=== PATIENT | male | born 1935 | race Caucasian/White ===

== ENCOUNTER 2016-09-10 13:48 | Emergency (ER) | payer OTHER, MEDICARE ==
[~2016-09-10] VITALS: Ht 182.9 cm; Wt 100.2 kg
--- NOTE | 2016-09-10 14:20 | ED GI/GU/ABDOMINAL COMPLAINT ---
History of Present Illness General Chief Complaint: Nausea, Vomiting, Diarrhea Stated Complaint: N/V Source: patient, family Exam Limitations: no limitations Vital Signs & Intake/Output Vital Signs & Intake/Output Vital Signs Date Time Temp Pulse Resp B/P B/P Pulse O2 O2 Flow FiO2 Mean Ox Delivery Rate 09/10 1826 97.0 66 17 152/68 100 Room Air 09/10 1352 97.7 62 20 160/73 96 ED Intake and Output 09/11 0000 09/10 1200 Intake Total 1700 Output Total Balance 1700 Intake, IV 1700 Patient 221 lb Weight Weight Reported by Patient Measurement Method Allergies Coded Allergies: Penicillins (UNKNOWN 09/10/16) Reconcile Medications Fluticasone Propionate 50 MCG/ACTUATION SPRAY.SUSP 2 SPRAY NASB DAILY ALLERGIES (Reported) Ondansetron HCl (Zofran) 4 MG TABLET 1 TAB PO Q6-8P PRN NAUSEA Triage Note: PT TO ED C/O N/V SINCE YESTERDAY. DENIES DIARRHEA. ALSO C/O "PAIN IN SINUSES" SINCE YESTERDAY. Triage Nurses Notes Reviewed? yes Onset: Abrupt Duration: constant Timing: recent history Quality/Severity: aching Severity Numbers: 1 Location: generalized abdomen Radiation: no radiation Activities at Onset: none HPI: Patient is a 80-year-old male with a past medical history of congenital SOLITARY KIDNEY, prostate cancer S/P CYSTECTOMY/prostatectomy in remission with a indwelling colostomy bag placed remotely by Dr. ECHEVERRIA in which patient's last colonoscopy was October [address] ECHEVERRIA showing polyps were patient states that yesterday he had acute onset of nausea and vomiting and this had multiple episodes of nonbloody nonbilious emesis and has been unable to tolerate anything by mouth. Patient denies any recent antibiotics. Denies any NSAID use. Denies any fever chills chest pain shortness of breath cough back pain arm pain jaw pain diaphoresis palpitations. Colostomy bag noted to have no concerns of bright red blood or melena. No change in bowel habits. Complains of minimal generalized abdominal discomfort due to emesis episodes. Patient does admit to a chronic history of left lateral nasal and sinus pressure where he states that he has been evaluated by an ENT doctor remotely where he has been taking nasal spray and antihistamines with relief of symptoms. Patient does admit that due to his symptoms as stated above his nasal pressure and sinus pressure has BEEN worse. (RAFFI LAW) Past History Travel History Traveled to [place] past 21 day No Medical History Any Pertinent Medical History? see below for history Cardiovascular: slow heart Cancer(s): prostate cancer Surgical History Surgical History: prostatectomy, COLOSTOMY Psychosocial History What is your primary language Swedish Tobacco Use: Quit >30 days ago ETOH Use: denies use Illicit Drug Use: denies illicit drug use Family History Hx Contributory? No (RAFFI LAW) Review of Systems Review of Systems Constitutional: Reports: no symptoms. EENTM: Reports: no symptoms. Respiratory: Reports: no symptoms. Cardiovascular: Reports: no symptoms. GI: Reports: see HPI, nausea. Genitourinary: Reports: no symptoms. Musculoskeletal: Reports: no symptoms. Skin: Reports: no symptoms. Neurological/Psychological: Reports: no symptoms. Hematologic/Endocrine: Reports: no symptoms. Immunologic/Allergic: Reports: no symptoms. All Other Systems: Reviewed and Negative (RAFFI LAW) Physical Exam Physical Exam General Appearance: no apparent distress, alert, comfortable Gastrointestinal: normal bowel sounds, soft, NO ABDOMINAL TENDERNESS Comments: Well-developed well-nourished person in no acute distress HEENT: Normal EENT exam, extraocular motion intact, no nystagmus. Pupils equally round and reactive to light and accommodation. Nose is atraumatic. External auditory canal and Tympanic membranes clear. Pharynx normal. No swelling or edema. Left sinus mild point tenderness noted Neck: Supple, no lymphadenopathy, normal range of motion without pain or tenderness Back: Nontender, no CVA tenderness. Cardiovascular: Regular rate and rhythms no murmurs rubs or gallops, normal JVP Respiratory: Chest nontender. No respiratory distress.breath sounds clear to auscultation bilaterally Abdomen: Soft, nontender nondistended, no appreciable organomegaly. Normal bowel sounds. No ascites Colostomy bag indwelling noted yellow/green stool Extremity: No edema, no calf tenderness to palpation, normal and equal pulses. Neuro: Alert oriented x3, motor sensory normal Skin: No appreciable rash on exposed skin, skin is warm and dry. Psych: Mood and affect is normal, memory and judgment is normal. Core Measures ACS in differential dx? No Severe Sepsis Present: No Septic Shock Present: No (RAFFI LAW) Progress Differential Diagnosis: AAA, AMI, appendicitis, biliary colic, bowel obstruction , colon cancer, cholecystitis, diverticulitis, epididymitis, esophageal varices, gastritis, hepatitis, hernia, hemorrhoids, ischemic bowel, inflamm bowel dis, Natalia-Libby tear, orchitis, pancreatitis, prostatitis, peptic ulcer, PUD/GERD, perforated viscous, pyelonephritis, SBO, ureterolithiasis, urethritis, UTI/pyelo Plan of Care: Orders Procedure Date/time Status Add-on Test (ER Only) 09/10 174 Active EKG 09/10 174 Active TROPONIN LEVEL 09/10 1516 Complete LIPASE 09/10 1430 Complete LACTIC ACID 09/10 1430 Complete COMPREHENSIVE METABOLIC PANEL 09/10 143 Complete CBC WITHOUT DIFFERENTIAL 09/10 143 Complete AMYLASE 09/10 143 Complete Laboratory Tests 09/10/16 1730: Lactic Acid Cancelled 09/10/16 1516: Anion Gap 13, Estimated GFR 32 L, BUN/Creatinine Ratio 12.5, Glucose 110 H, Lactic Acid 1.3, Calcium 9.5, Total Bilirubin 0.7, AST 19, ALT 38, Alkaline Phosphatase 58, Troponin I 0.02, Total Protein 7.4, Albumin 4.5, Globulin 2.9, Albumin/Globulin Ratio 1.6, Amylase 60, Lipase 148, CBC w Diff NO MAN DIFF REQ, RBC 5.87, MCV 85.2, MCH 28.0, RDW 13.8, MPV 8.1, Gran % 88.0 H, Lymphocytes % 9.4 L, Monocytes % 2.6, Eosinophils % 0, Basophils % 0 L, Absolute Granulocytes 8.1 H, Absolute Lymphocytes 0.9 L, Absolute Monocytes 0.2, Absolute Eosinophils 0, Absolute Basophils 0, PUBS MCHC 32.9 L Patient currently is resting comfortably at bedside has nontender abdomen however patient will be obtaining blood work and CT scan patient is afebrile. 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 On discharge patient looks well no apparent distress and will comply with discharge instructions and had no questions. Discussed disposition plan with who agrees (RAFFI LAW) Diagnostic Imaging: Viewed by Me: CT Scan. Radiology Impression: no acute abnormality Initial ED EK BPM, 1ST DEGREE AV BLOCK Prior EKG: unchanged (RAFFI LAW) Departure Departure Disposition: HOME OR SELF CARE Condition: Stable Clinical Impression Primary Impression: Nausea & vomiting Secondary Impressions: Chronic sinusitis Referrals: JACKI APARICIO,JOSE LICEA MD,JEANNIE Chavarria (PCP/Family) Additional Instructions: As discussed begin a 24-hour clear liquids and bland diet to rest her bowels. Begin the prescription of Zofran if needed for future nausea. Continue home medications as directed. If symptoms worsen return to emergency room. Follow- up tomorrow if your symptoms still continue with business reporter Dr. Rodriguez Departure Forms: Customer Survey General Discharge Information Prescriptions: Current Visit Scripts Ondansetron HCl (Zofran) 1 TAB PO Q6-8P PRN NAUSEA #15 TAB (RAFFI LAW) PA/PHONE COUNSELOR Co-Sign Statement Statement: ED Attending supervision documentation- [X] I saw and evaluated the patient. I have also reviewed all the pertinent lab results and diagnostic results. I agree with the findings and the plan of care as documented in the PA's/PHONE COUNSELOR's documentation. [X] I have reviewed the ED Record and agree with the PA's/PHONE COUNSELOR's documentation. [] Additions or exceptions (if any) to the PAs/PHONE COUNSELOR's note and plan are summarized below: [] (MAYRA APARICIO,VIJI)
[2016-09-10] MEDS ORDERED: FLUTICASONE PRO16 GM NASB (14:31)
[2016-09-10 15:29] LABS: ABSOLUTE BASOPHIL COUNT 0 /CUMM (0.0-0.2); ABSOLUTE EOSINOPHIL COUNT 0 /CUMM (0.0-0.7); ABSOLUTE GRANULOCYTE CT 8.1 /CUMM (1.4-6.5); ABSOLUTE LYMPH COUNT 0.9 /CUMM (1.2-3.4); ABSOLUTE MONOCYTE COUNT 0.2 /CUMM (0.10-0.60); BASOPHIL % 0 % (0.0-2.0); EOSINOPHIL % 0 % (0-5); MEAN CORPUSCULAR HGB CONC 32.9 G/DL (33.0-37.0); MEAN CORPUSCULAR VOLUME 85.2 FL (80.0-94.0); MEAN PLATELET VOLUME 8.1 FL (7.4-10.4); PLATELET COUNT 162 /CUMM (130-400); RBC DISTRIBUTION WIDTH 13.8 % (11.5-14.5); RED BLOOD CELL CT 5.87 /CUMM (4.70-6.10); WHITE BLOOD CELL COUNT 9.2 /CUMM (4.8-10.8)
--- NOTE | 2016-09-10 17:34 | CT SCAN REPORT ---
EXAMINATION: CT ABDOMEN AND PELVIS WITHOUT CONTRAST CLINICAL INFORMATION: Nausea and vomiting. Status post cystectomy. Status post left nephrectomy. Status post prostatectomy. COMPARISON: CAT scan of 04/25/2005 not available for review TECHNIQUE: Multidetector volumetric imaging was performed from the superior aspect of the liver through the pubic symphysis. Sagittal and coronal reformatted images were obtained on the technologist's workstation. No oral or intravenous contrast DLP: 615.24 mGy-cm FINDINGS: LUNG BASES: The visualized lung bases are unremarkable. LIVER, GALLBLADDER, AND BILIARY TREE: The liver is normal in size, shape, and attenuation. No focal hepatic lesion or biliary ductal dilatation is present. The gallbladder is unremarkable with no evidence of radiopaque gallstones, gallbladder wall thickening, or obvious pericholecystic inflammatory changes. PANCREAS: Unremarkable. SPLEEN: Unremarkable. ADRENAL GLANDS: Unremarkable. KIDNEYS AND URETERS: Status post left nephrectomy. No recurrent tumor in renal bed. The right kidney has dilatation of the calyces renal pelvis and ureter to the urinary diversion/ urinary ostomy. No calculus or hydronephrosis. BLADDER: Status post cystectomy GASTROINTESTINAL TRACT: The small and large bowel are unremarkable. The appendix is unremarkable. ABDOMINAL WALL: No significant hernia is appreciated. LYMPH NODES: Normal. VASCULAR: Unremarkable. PELVIC VISCERA: Status post prostatectomy. OSSEOUS STRUCTURES: Degenerative change of the spine with endplate spurs of the vertebrae. Mild facet joint arthrosis at lower lumbar spine. IMPRESSION: No acute abnormality CT scan abdomen pelvis. Status post left nephrectomy and status post cystectomy with right lower quadrant urinary ostomy.
[2016-09-10] MEDS ORDERED: ZOFRAN4 M2 PO (17:50)
[2016-09-10 18:26] VITALS: BP 152/68
== END 2016-09-10 18:39 ==
LOC: ERH 13:48
PROVIDERS: Physician Assistant
DX: R11.2 Nausea with vomiting, unspecified (principal); J32.9 Chronic sinusitis, unspecified; Z87.891 Personal history of nicotine dependence; R10.84 Generalized abdominal pain
CPT/HCPCS: 74176; 93005; 93010; 96374; J2405